=== PATIENT | female | born 1965 | race African-American/Black ===

== ENCOUNTER 2018-03-03 23:05 | Inpatient (IN) | payer OTHER ==
[~2018-03-03] VITALS: Ht 149.9 cm; Wt 66.7 kg
[2018-03-03 23:13] VITALS: Ht 149.9 cm; Wt 66.7 kg
[2018-03-04] VITALS (8 sets, daily range): BP systolic 109–170; BP diastolic 55–103
[2018-03-04 00:25] LABS: BASOPHIL % 1.4 % (0-2); PLATELET COUNT 250 x10^3mcL (130-400)
[2018-03-04 00:26] LABS: RED CELL DISTRIBUTION WIDTH 15.4 % (11.5-14.5)
[2018-03-04 00:35] LABS: CALCIUM 9.3 mg/dL (8.5-10.1); CARBON DIOXIDE 29.6 mmol/L (21-32); CREATININE SERUM 1.2 mg/dL (0.6-1.0); POTASSIUM SERUM 3.2 mmol/L (3.5-5.1)
[2018-03-04 00:39] LABS: ALBUMIN 3.8 g/dL (3.4-5.0); BILIRUBIN TOTAL 0.4 mg/dL (0.20-1.00); TOTAL PROTEIN, SERUM 7.9 g/dL (6.4-8.2)
[2018-03-04] MEDS ORDERED: GLIPIZIDE5 M2 PO (01:54)
[2018-03-04] MEDS ORDERED: METFORMIN500 M1 PO (01:54)
[2018-03-04] MEDS ORDERED: LOSARTAN POTASS1 TA6 PO (01:55)
[2018-03-04] MEDS ORDERED: LIPITOR10 MG PO (01:55)
[2018-03-04] MEDS ORDERED: ASPIRIN ADULT L81 M5 PO (01:56)
[2018-03-04] MEDS ORDERED: TOPROL XL25 MG PO (01:56)
[2018-03-04 02:54] LABS: MAGNESIUM 1.7 mg/dL (1.8-2.4); PHOSPHOROUS 3.6 mg/dL (2.5-4.9)
[2018-03-04 03:01] LABS: T3 TOTAL 1.23 ng/mL
[2018-03-04 03:05] LABS: FREE T4 1.14 ng/dL (0.76-1.46); FREE THYROXINE INDEX 3.2 ug/dL (1.4-4.5); T4(THYROXINE) 10.1 ug/dL (4.7-13.3)
[2018-03-04 03:16] LABS: microscopic required? YES; urine erythrocyte 2+ (NEGATIVE)
[2018-03-04 04:30] LABS: AMPHETAMINE QUAL UR NONE DETECTED (NEG <=1000)
[2018-03-04 06:19] LABS: CARBON DIOXIDE 27.1 mmol/L (21-32); CHLORIDE SERUM 102 mmol/L (98-107); GFR1 > 60 mL/min; MAGNESIUM 1.7 mg/dL (1.8-2.4); POTASSIUM SERUM 3.7 mmol/L (3.5-5.1); SODIUM SERUM 138 mmol/L (136-145)
[2018-03-04 06:29] LABS: GLUCOSE SERUM 57 mg/dL (74-106)
[2018-03-05 06:10] LABS: PLATELET COUNT 231 x10^3mcL (130-400)
[2018-03-05 06:21] VITALS: BP 158/95
[2018-03-05 06:36] LABS: RED CELL DISTRIBUTION WIDTH 15.7 % (11.5-14.5)
[2018-03-05 06:46] LABS: CALCIUM 8.5 mg/dL (8.5-10.1); CARBON DIOXIDE 26.4 mmol/L (21-32); CREATININE SERUM 1.1 mg/dL (0.6-1.0); MAGNESIUM 2.1 mg/dL (1.8-2.4); POTASSIUM SERUM 4.1 mmol/L (3.5-5.1)
[2018-03-05 08:58] VITALS: BP 164/100
[2018-03-05 11:00] VITALS: BP 170/101
[2018-03-05 12:53] VITALS: BP 165/85
[2018-03-05 14:55] VITALS: BP 141/94
[2018-03-05] MEDS ORDERED: TOP50 PO (15:16)
[2018-03-05] MEDS ORDERED: ADA30 PO (15:17)
[2018-03-05] MEDS ORDERED: COZ50 PO (15:19)
[2018-03-05] MEDS ORDERED: HYD25 PO (15:20)
[2018-03-05] MEDS ORDERED: FIORICET1 CAP PO (15:21)
[2018-03-05 15:36] VITALS: BP 141/94
== END 2018-03-05 16:59 | disposition home or self-care (01) | DRG 305 ==
LOC: ED 23:05 → DU 03-04 01:37
PROVIDERS: Emergency Medicine; Family Medicine
DX: I16.0 Hypertensive urgency (principal); T46.5X6A Underdosing of other antihypertensive drugs, initial encounter; E11.65 Type 2 diabetes mellitus with hyperglycemia; E87.6 Hypokalemia; E83.42 Hypomagnesemia; R31.9 Hematuria, unspecified; I10 Essential (primary) hypertension; Z68.28 Body mass index [BMI] 28.0-28.9, adult; Z91.138 Patient's unintentional underdosing of medication regimen for other reason; Y92.009 Unspecified place in unspecified non-institutional (private) residence as the place of occurrence of the external cause
CPT/HCPCS: 82962; 83880; 84439; J1885; J2270; J2405; J3010; J3475; J3490; J7030; Q0092